=== PATIENT | male | born 1965 | race Caucasian/White ===

== ENCOUNTER 2019-09-06 10:18 | Day surgery (SDC) | payer OTHER ==
[~2019-09-06] VITALS: Ht 185.4 cm; Wt 123.6 kg
[~2019-09-06 10:18] MED LIST: Aspir 8181 MG PO; Lisinopril2.5 MG PO; PHYSICIANS1000 MCG/1 IM; ROSU10TA PO
--- NOTE | 2019-09-06 15:28 | NUR ---
DISCHARGE PT REMAINED A&OX3 AND DENIED ANY PAIN DURING RECOVERY. R RADIAL SITE-TR BAND REMOVED-CLOTH DOT AND WHITE BOARD IN PLACE. DICHARGE PAPERWORK GONE OVER WITH PT AND SPOUSE. PT AND SPOUSE VERBALLY DENIED ANY QUESTIONS ABOUT THE DISCHARGE EDUCATION AT THIS TIME. PT DRESSED SELF WITH HELP FROM SPOUSE. IV DC'D WITH TIP IN TACT. PT UP TO AMBULATE WITH STEADY GAIT. PT WHEELED OUT BY THIS NURSE.
== END 2019-09-06 15:23 | disposition home or self-care (01) ==
LOC: MHTC 10:18
PROC: 4A023N7 Measurement of Cardiac Sampling and Pressure, Left Heart, Percutaneous Approach (ICD-10-PCS; principal; 2019-09-06)
PROC: B201YZZ Plain Radiography of Multiple Coronary Arteries using Other Contrast (ICD-10-PCS; principal; 2019-09-06)
DX: I25.10 Atherosclerotic heart disease of native coronary artery without angina pectoris (principal); I10 Essential (primary) hypertension; G47.33 Obstructive sleep apnea (adult) (pediatric); I45.10 Unspecified right bundle-branch block; E78.2 Mixed hyperlipidemia; I49.3 Ventricular premature depolarization; I44.1 Atrioventricular block, second degree; Z87.891 Personal history of nicotine dependence; Z99.89 Dependence on other enabling machines and devices; Z86.73 Personal history of transient ischemic attack (TIA), and cerebral infarction without residual deficits; Z79.82 Long term (current) use of aspirin; Z79.02 Long term (current) use of antithrombotics/antiplatelets; Z79.899 Other long term (current) drug therapy; Z88.0 Allergy status to penicillin
CPT/HCPCS: 93458; 99152; C1769; C1894; J1644; J2250; J3010; J7030; Q9967

== ENCOUNTER 2021-03-16 14:08 | Emergency (ER) | payer OTHER ==
[~2021-03-16] VITALS: Ht 185.4 cm; Wt 108.9 kg
[~2021-03-16 14:08] MED LIST changes: +Amlodipine Bes2.5 MG PO; +COQ-10100 MG PO; +FAMO40 PO; +FLUT.05NI; +TAMS.4ER PO
[2021-03-16] MEDS ORDERED: AMOCLA875 PO (18:09)
[2021-03-16] MEDS ORDERED: Norco 5-325 Ta1 EACH PO (18:09)
[2021-03-16] MEDS ORDERED: ONDA4ODT MM (18:09)
== END 2021-03-16 18:33 | disposition home or self-care (01) ==
LOC: ER 14:08
DX: S68.623A Partial traumatic transphalangeal amputation of left middle finger, initial encounter (principal); S68.625A Partial traumatic transphalangeal amputation of left ring finger, initial encounter; S68.627A Partial traumatic transphalangeal amputation of left little finger, initial encounter; Z79.82 Long term (current) use of aspirin; Z79.899 Other long term (current) drug therapy; W28.XXXA Contact with powered lawn mower, initial encounter
CPT/HCPCS: 12004; 73130; 90471; 90714; 96372-59; 99283-25; J1170

== ENCOUNTER → 2021-06-15 | Outpatient (CLI) | payer OTHER ==
[~2021-06-15] MED LIST changes: +AMOCLA875 PO; +Norco 5-325 Ta1 EACH PO; +ONDA4ODT MM
== END | disposition home or self-care (01) ==
LOC: LAB SHORT 10:43 → LAB 10:43
DX: D22.5 Melanocytic nevi of trunk (principal); L57.0 Actinic keratosis
CPT/HCPCS: 88305

== ENCOUNTER → 2021-09-21 | Outpatient (CLI) | payer OTHER | END | disposition home or self-care (01) | LOC: LAB SHORT 08:01 → PLD 08:01 | DX: D48.5 Neoplasm of uncertain behavior of skin (principal) | CPT/HCPCS: 88305 ==

== ENCOUNTER 2024-12-20 12:16 | Day surgery (SDC) | payer OTHER ==
[~2024-12-20] VITALS: Ht 185.4 cm; Wt 114.0 kg
[~2024-12-20 12:16] MED LIST changes: +Lactated Ringer's 1,000 ML IV ONE
[2024-12-20] MEDS ORDERED: OMEP20ER (12:38)
[2024-12-20] MEDS ORDERED: NORT25 (12:38)
[2024-12-20] MEDS ORDERED: Lactated Ringer's 1,000 ML IV ONE (13:00)
[2024-12-20] MEDS ORDERED: propofoL 50 ML IV ONE (13:08)
[2024-12-20 14:26] VITALS: BP 130/77
== END 2024-12-20 14:20 | disposition home or self-care (01) ==
LOC: ORSCSDS 12:16
PROVIDERS: Internal Medicine Gastroenterology
PROC: 0DBL8ZX Excision of Transverse Colon, Via Natural or Artificial Opening Endoscopic, Diagnostic (ICD-10-PCS; principal; 2024-12-20 13:45)
DX: D50.9 Iron deficiency anemia, unspecified (principal); Z86.0100 Personal history of colon polyps, unspecified; D12.3 Benign neoplasm of transverse colon; K21.9 Gastro-esophageal reflux disease without esophagitis; Z86.2 Personal history of diseases of the blood and blood-forming organs and certain disorders involving the immune mechanism; K57.30 Diverticulosis of large intestine without perforation or abscess without bleeding; G47.33 Obstructive sleep apnea (adult) (pediatric); E66.9 Obesity, unspecified; Z68.33 Body mass index [BMI] 33.0-33.9, adult; Z87.891 Personal history of nicotine dependence; Z79.899 Other long term (current) drug therapy
CPT/HCPCS: 88305; J2704; J7120